=== PATIENT | female | born 1950 | race Caucasian/White ===

== ENCOUNTER → 2016-09-26 | Outpatient (CLI) | payer BC ==
[~2016-09-26] MED LIST: ASPI-664 PO; DOCU-144 PO; ERGO500014 PO; GLIM2TAB PO; HYDR-3498 PO; LOSA100T7 PO; LOSA50TA2 PO; MELO-110 PO; TEN25 PO
--- NOTE | 2016-09-27 15:20 | RADRPT ---
PROCEDURE: I - 123 thyroid uptake and scan CLINICAL INDICATION: 66 -year-old patient with hyperthyroidism. TECHNIQUE: Following the oral administration of 0.17 mCi of I - 123, thyroid uptake and scan was o btained. COMPARISON: No prior thyroid scans. Parathyroid sestamibi scan dated August 26, 2016. FINDINGS: 6 hours radioiodine uptake is 10 % (normal range is 5% - 20%). 24 hours radioiodine uptake is 22 % (normal range is 7% - 35%). The thyroid gland demonstrates a mildly enlarged thyroid gland (approximately 1.5 x normal size) wit h slightly heterogeneous distribution of radionuclide throughout the thyroid gland. IMPRESSION: 1. Mildly enlarged thyroid gland with slightly heterogeneous distribution of radionuclide. 2. Normal radioiodine uptake. RPTAT: HH .Cailin Porras MD, Date Time Electronically viewed and signed by .Cailin Porras MD, on 09/27/2016 15:19 .L/
== END | disposition home or self-care (01) ==
LOC: NUC 10:36
PROVIDERS: ATTEND Surgery Surgical Oncology
DX: E03.9 Hypothyroidism, unspecified (principal)
CPT/HCPCS: 78014; A9516